=== PATIENT | female | born 1990 | race Caucasian/White ===

== ENCOUNTER 2017-10-26 18:58 | Emergency (ER) | payer MEDICAID, SELFPAY ==
[2017-10-26 18:59] VITALS: BP 125/89; PULSE 92; RESP 18; TEMP 36.8; O2SAT 97; BMI 36.8
--- NOTE | 2017-10-26 19:50 | ED.VISSUMM ---
- ER Visit Summary Date of Service: 10/26/17 Chief Complaint: [Left ear pain] History of Present Illness: The patient is a 27 F [presents the emergency department with left ear pain that started 5 days ago. Patient complains of pressure in the left ear. Patient has noticed some yellow drainage from the left ear. Patient denies any fever. Patient states that she just recently got over an upper respiratory infection. Patient has had problems with her ears in the past.] Physical Examination: [HEENT-PERRLA, EOMI. Cranial nerves II through XII grossly intact. TM clear, left TM erythematous and dull and difficult to visualize landmarks. Patient does have pain with traction on the left pinna. There is small amount of yellowish fluid noted at the base of the eardrum. Minimal swelling of the ear canal noted.. Mucous membranes moist. No adenopathy. No tenderness on percussion of the mastoid Cardiovascular-regular rate and rhythm without murmur or ectopy Lungs-clear to auscultation, chest wall stable without crepitus or subcu emphysema Abdomen-normoactive bowel sounds, soft, nontender, no rebound or rigidity, no peritoneal signs. Extremities-intact ?4, normal range of motion, normal pulses, atraumatic] Test Results: [None indicated] Emergency Department Course and Treatment: Patient was started on Zithromax and Cortisporin otic suspension [] Treatment Plan: [We will treat with Zithromax and Cortisporin otic suspension] Disposition: [Discharged home in stable condition. Patient will be referred to Dr. Albert Floyd for follow-up within next 3-5 days.] Impression: [Otitis media Left otitis externa] This note was generated with [employer] dictation software. It may contain incorrect words, spelling, and punctuation that were not noted in review of the chart prior to signing ED Disposition - Plan for ED Patient: Chief Complaint: Ear Problem Referrals: Shashi Sharpe MD [Primary Care Provider] -
--- NOTE | 2017-10-26 19:52 | ED.DEP ---
ED Disposition - Plan for ED Patient: Chief Complaint: Ear Problem Prescriptions: Azithromycin [Zithromax] 250 mg PO DAILY #4 tab Referrals: Shashi Sharpe MD [Primary Care Provider] - Albert Floyd MD [STAFF PHYSICIAN] - 3-5 Days
--- NOTE | 2017-10-26 19:55 | ED.DEP ---
ED Disposition - Plan for ED Patient: Chief Complaint: Ear Problem Instructions: ED Otitis Media Acute Adult, ED Otitis Externa Prescriptions: Azithromycin [Zithromax] 250 mg PO DAILY #4 tab Referrals: Albert Floyd MD [STAFF PHYSICIAN] - 3-5 Days Shashi Sharpe MD [Primary Care Provider] -
[2017-10-26] MEDS: Azithromycin 250 MG Tablet 500 MG PO (20:02)
[2017-10-26] MEDS: Neomycin Sulfate/Polymyxin/Hc Susp 10 ML Bottle 4 DRP OTIC (20:06)
[2017-10-26 20:09] VITALS: BP 119/78; PULSE 87; RESP 16
== END 2017-10-26 20:10 | disposition home or self-care (01) ==
PROVIDERS: Emergency Provider Emergency Medicine; Family Provider Family Medicine; PCP Family Medicine
DX: H66.92 Otitis media, unspecified, left ear (principal); H60.92 Unspecified otitis externa, left ear; Z79.899 Other long term (current) drug therapy
CPT/HCPCS: 99283

== ENCOUNTER 2018-11-21 20:40 | Emergency (ER) | payer MEDICAID, SELFPAY ==
[2018-11-21 20:41] VITALS: BP 137/82; PULSE 90; RESP 18; TEMP 36.4; O2SAT 100; BMI 36.6
--- NOTE | 2018-11-21 21:07 | ED.VISSUMM ---
- ER Visit Summary Date of Service: 11/21/18 Chief Complaint: [] Itching to her back today History of Present Illness: The patient is a 28 F [] denies any exposures no issues of fever cough head neck chest or abdominal pain indicates that she just has a sense of diffuse itching to her back no new medications no oral cavity lesions no fever no cough review of systems entirely negative took Benadryl before she came in Physical Examination: [] Vital signs are normal, General, no distress resting comfortably HEENT is generally unremarkable The neck is supple no adenopathy Cardiovascular, regular rate and rhythm Lungs, clear bilateral Abdomen, soft nontender Extremities, no clubbing cyanosis or edema Neurologic, awake alert answering questions appropriately moving all 4 extremities, her backs unremarkable the skin is unremarkable there is no lesions to explain the itching Test Results: [] Emergency Department Course and Treatment: [] In all the above I believe she stable for discharge she concurs she will be given Decadron 4 mg p.o. she is hydrocortisone to the areas that are bothering her Aveeno bath and follow-up with her doctors tomorrow Benadryl as needed return for change in symptoms Treatment Plan: [] Disposition: [] Home stable Impression: [] Pruritus to the back etiology unclear This note was generated with [employer] dictation software. It may contain incorrect words, spelling, and punctuation that were not noted in review of the chart prior to signing ED Disposition - Plan for ED Patient: Referrals: NOT,DEFINED [Primary Care Provider] -
--- NOTE | 2018-11-21 21:08 | ED.DEP ---
ED Disposition - Plan for ED Patient: Instructions: ED Allergic Reaction General Other Referrals: NOT,DEFINED [Primary Care Provider] -
[2018-11-21 21:55] VITALS: BP 122/71; PULSE 88; RESP 18; O2SAT 99
== END 2018-11-21 21:56 | disposition home or self-care (01) ==
LOC: ED 21:17
PROVIDERS: Emergency Provider Emergency Medicine
DX: L29.9 Pruritus, unspecified (principal)
CPT/HCPCS: 99283